=== PATIENT | female | born 1980 | race Caucasian/White ===

== ENCOUNTER 2019-02-08 00:24 | Emergency (ER) | payer OTHER ==
[~2019-02-08] VITALS: Ht 162.6 cm; Wt 97.5 kg
[~2019-02-08 00:24] MED LIST: ADULT LOW DOSE81 MG; ASPIR 8181 MG PO; CHLORTHALIDONE25 MG PO; CIPROFLOXACIN500 M1 PO; CLONIDINE0.1 PO; EXCEDRIN MIGRA1 EAC1 PO; FAMOTIDINE; HYDROCHLOROTH12.5 M1 PO; HYDROCHLOROTHIA25 M2 GT; IBUPROFEN 600600 M1 PO; LABETALOL HCL300 MG PO; LISINOPRIL10 MG PO; LISINOPRIL40 MG PO; MACROBID 100 M100 M1 PO; METHYLDOPA500 MG PO; NIFEDICAL XL60 MG; NORCO 5-325 TA1 EACH PO; NORFLEX100 MG PO; NORVASC 5 MG TAB5 MG PO; PRENATAL; PRINIVIL20 MG PO; ZPAK PO
[2019-02-08] MEDS ORDERED: ZESTRIL40 MG PO (00:35)
[2019-02-08] MEDS ORDERED: METFORMIN HCL500 MG PO (00:36)
[2019-02-08] MEDS ORDERED: CHLORTHALIDONE25 MG PO (00:36)
[2019-02-08] MEDS ORDERED: SPIRONOLACTONE25 M1 PO (00:36)
[2019-02-08] MEDS ORDERED: CARVEDILOL12.5 MG PO (00:36)
[2019-02-08] MEDS ORDERED: PROTONIX40 M1 PO (00:37)
[2019-02-08] MEDS ORDERED: LIPITOR 20 MG T20 M1 PO (00:37)
[2019-02-08 02:53] LABS: ANION GAP 8 mmol/L (7-16); BUN 14 mg/dL (7-18); CALCIUM 9.2 mg/dL (8.5-10.1); CHLORIDE 102 mmol/L (98-107); CO2 24 mmol/L (21-32); CREATININE 0.7 mg/dL (0.6-1.0); GLUCOSE 111 mg/dL (74-106); POTASSIUM 3.9 mmol/L (3.5-5.1); SODIUM 134 mmol/L (136-145)
[2019-02-08 03:02] LABS: TROPONIN-I <0.06 ng/mL (<0.06)
[2019-02-08] MEDS ORDERED: MIRALAX17 GM PO (04:14)
[2019-02-08 04:30] VITALS: BP 142/89
--- NOTE | 2019-02-08 07:51 | EKG ---
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
== END 2019-02-08 04:30 | disposition home or self-care (01) ==
LOC: ER 00:24
PROVIDERS: Emergency Medicine
DX: K64.5 Perianal venous thrombosis (principal); I10 Essential (primary) hypertension; Z90.49 Acquired absence of other specified parts of digestive tract; Z86.73 Personal history of transient ischemic attack (TIA), and cerebral infarction without residual deficits; Z98.890 Other specified postprocedural states; Z88.0 Allergy status to penicillin; Z88.2 Allergy status to sulfonamides; Z88.8 Allergy status to other drugs, medicaments and biological substances

== ENCOUNTER 2019-02-10 09:35 | Day surgery (SDC) | payer OTHER ==
[~2019-02-10] VITALS: Ht 152.4 cm; Wt 96.2 kg
[~2019-02-10 09:35] MED LIST changes: +CARVEDILOL12.5 MG PO; +LIPITOR 20 MG T20 M1 PO; +METFORMIN HCL500 MG PO; +MIRALAX17 GM PO; +PROTONIX40 M1 PO; +SPIRONOLACTONE25 M1 PO; +ZESTRIL40 MG PO
[2019-02-10 10:35] VITALS: BP 150/83
[2019-02-10] MEDS ORDERED: ASPIR 8181 MG PO (11:29)
[2019-02-10] MEDS ORDERED: HYDROCODON-ACE1 EAC7 PO (11:32)
[2019-02-10] MEDS ORDERED: MIRALAX17 GM PO (11:32)
[2019-02-10] MEDS ORDERED: METAMUCIL FIBE3.4 GM PO (11:32)
[2019-02-10] MEDS ORDERED: COLACE 100 MG100 MG PO (11:32)
[2019-02-10 15:55] VITALS: BP 151/92
--- NOTE | 2019-02-10 15:55 | 2DMMODE ---
[facility] [address] [place] [address] 2 D/M-MODE ECHOCARDIOGRAM Name: ASHLEYPRECIOUSLAJANEE YONAS Room #: 150-6 [facility] M.R.#: [id number] Admission: 02/10/19 Attend Phys: José Carter, Discharge: Date of : 76 Date of Service: 02/10/19 1554 Report #: [id number] THIS REPORT FOR: //name// APPROVED REPORT Study performed: 02/10/2019 14:59:45 EXAM: Comprehensive 2D, Doppler, and color-flow Echocardiogram Patient Location: PACU Status: routine BSA: 1.91 HR: 72 bpm BP: 150/83 mmHg Rhythm: NSR Other Information Study Quality: Good Indications Chest Pain HTN 2D Dimensions RVDd: 30.45 mm IVSd: 11.06 (7-11mm) LVOT Diam: 23.35 (18-24mm) LVDd: 44.78 mm PWd: 10.10 (7-11mm) Ascending Ao: 39.12 (22-36mm) LVDs: 30.34 (25-40mm) Aortic Root: 42.06 mm Volumes Left Atrial Volume (Systole) Single Plane 4CH: 42.78 mL Single Plane 2CH: 59.65 mL LA ESV Index: 29.00 mL/m2 Aortic Valve AoV Peak Alok.: 1.27 m/s AO Peak Gr.: 6.42 mmHg LVOT Max P.50 mmHg LVOT Max V: 0.93 m/s CHARI Vmax: 3.16 cm2 Mitral Valve E/A Ratio: 0.9 MV Decel. Time: 225.56 ms [facility] [address] [place] [address] 2 D/M-MODE ECHOCARDIOGRAM Name: ASHLEYPRECIOUSJANEE YONAS Room #: 150-6 [facility].#: [id number] Admission: 02/10/19 Attend Phys: José Carter, Discharge: Date of : 76 Date of Service: 02/10/19 1554 Report #: [id number] MV E Max Alok.: 0.83 m/s MV A Alok.: 0.97 m/s MV PHT: 65.41 ms IVRT: 87.66 ms Pulmonary Valve PV Peak Alok.: 0.90 m/s PV Peak Gr.: 3.21 mmHg Pulmonary Vein P Vein S: 0.57 m/s P Vein A: 0.33 m/s P Vein D: 0.28 m/s P Vein A Dur.: 124.6 msec P Vein S/D Ratio: 2.04 Tricuspid Valve TR Peak Alok.: 2.05 m/s RAP Estimate: 5.00 mmHg TR Peak Gr.: 16.84 mmHg PA Pressure: 22.00 mmHg Left Ventricle The left ventricle is normal size. There is normal LV segmental wall motion. There is normal left ventricular wall thickness. Left ventricular systolic function is normal. LVEF is 60-65%. Mild diastolic dysfunction Right Ventricle The right ventricle is normal size. The right ventricular systolic function is normal. Atria The left atrium size is normal. The right atrium size is normal. Aortic Valve The aortic valve is normal in structure. No aortic regurgitation is present. There is no aortic valvular stenosis. Mitral Valve The mitral valve is normal in structure. Trace mitral regurgitation. Tricuspid Valve The tricuspid valve is normal in structure. Mild tricuspid regurgitation. Estimated PAP is 20-25mmHg. Pulmonic Valve The pulmonary valve is normal in structure. Trace pulmonic [facility] [address] [place] [address] 2 D/M-MODE ECHOCARDIOGRAM Name: JANEE NAGY Room #: 150-6 [facility] Jennifer#: [id number] Admission: 02/10/19 Attend Phys: José Carter, Discharge: Date of : 76 Date of Service: 02/10/19 1554 Report #: [id number] regurgitation. Great Vessels Aortic root is dilated at 4.2cm. Ascending aorta is miildly dilated (3.9cm). IVC is normal in size and collapses >50% with inspiration. Pericardium There is no pericardial effusion. <Conclusion> Left ventricular systolic function is normal. There is normal LV segmental wall motion. LVEF is 60-65%. Mild diastolic dysfunction The aortic valve is normal in structure. No aortic regurgitation or stenosis. The mitral valve is normal in structure. Trace mitral regurgitation. Mild tricuspid regurgitation. Estimated pulmonary artery pressure of 20-25mmHg. Ascending aorta is miildly dilated (3.9cm). There is no pericardial effusion. <ELECTRONICALLY SIGNED> By: Mihir Pichardo MD, [facility] 02/10/19 1554 1554 1554 Mihir Pichardo MD, FACC /INF
[2019-02-10 16:40] VITALS: BP 150/83
[2019-02-10 17:23] VITALS: BP 150/83
--- NOTE | 2019-02-10 18:15 | EKG ---
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
--- NOTE | 2019-02-11 10:31 | EKG ---
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1980 Requested By: José Carter Order Number: [id number] MD: Mihir Pichardo Measurements Intervals [place] Rate: 66 P: 28 IN: 218 QRS: 18 QRSD: 100 T: 37 QT: 425 QTc: 446 Interpretive Statements Sinus rhythm Prolonged IN interval Compared to ECG 02/08/2019 02:27:26 No significant changes Electronically Signed On 02-11-2019 10:31:36 CDT by Mihir Pichardo [email or web address] <ELECTRONICALLY SIGNED> By: Mihir Pichardo MD, [facility] 02/11/19 1031 1018 1018 Mihir Pichardo MD, [facility] /EPI
--- NOTE | 2019-02-11 10:36 | EKG ---
[place] [address] [address] [facility] [place] [address] ELECTROCARDIOGRAM REPORT Name: ASHLEYPRECIOUSJANEE Room #: [facility].#: [id number] Admission: 02/10/19 Attend Phys: José Carter MD Discharge: 02/10/19 Date of : 76 Report #: [id number] THIS REPORT FOR: //name// 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1980 Requested By: Fawn Varner Order Number: [id number] MD: Mihir Pichardo Measurements Intervals [place] Rate: 79 P: 43 VA: 223 QRS: 13 QRSD: 93 T: 35 QT: 403 QTc: 463 Interpretive Statements Sinus rhythm Prolonged VA interval Abnormal R-wave progression, early transition Compared to ECG 02/08/2019 02:27:26 No significant change was found Electronically Signed On 02-11-2019 10:36:32 CDT by Mihir Pichardo [email or web address] <ELECTRONICALLY SIGNED> By: Mihir Pichardo MD, [facility] 02/11/19 1036 1319 1319 Mihir Pichardo MD, [facility] /EPI
--- NOTE | 2019-02-13 15:26 | O ---
[address] [address] OPERATIVE REPORT Name: LA NAGYFER YONAS Room #: DEP [facility] Jennifer#: [id number] Admission: 02/10/19 Attend Phys: José Carter MD Discharge: 02/10/19 Date of : 76 Report #: [id number] THIS REPORT FOR: //name// CC: José Vides DATE OF SERVICE: 02/10/2019 PROCEDURE PERFORMED: 1. Exam under anesthesia. 2. Incision and drainage of several thrombosed hemorrhoids. PREPROCEDURAL DIAGNOSES: 1. Thrombosed hemorrhoids. 2. Coronary artery disease, status post myocardial infarction x 3, last 3 months ago. 3. History of stroke. 4. Morbid obesity. 5. Diabetes mellitus. 6. Hypertension. 7. Hyperlipidemia. POSTPROCEDURAL DIAGNOSES: 1. Thrombosed hemorrhoids. 2. Coronary artery disease, status post myocardial infarction x 3, last 3 months ago. 3. History of stroke. 4. Morbid obesity. 5. Diabetes mellitus. 6. Hypertension. 7. Hyperlipidemia. SURGEON: Dr. Carter. ESTIMATED BLOOD LOSS: None. ANESTHETIC: 1. General. 2. Local. URINE OUTPUT: Not measured. No Rg. COMPLICATIONS: None. FINDINGS: The patient had very large right posterior and right lateral thrombosed hemorrhoid as well as left lateral thrombosed hemorrhoid. [address] [address] OPERATIVE REPORT Name: JANEE NAGY Room #: DEP [facility].#: [id number] Admission: 02/10/19 Attend Phys: José Carter MD Discharge: 02/10/19 Date of : 76 Report #: [id number] INDICATIONS FOR PROCEDURE: The patient is a very pleasant 38-year-old female who presented last Wednesday in clinic with rectal pain. The patient was found to have thrombosed hemorrhoids. She had been referred to my clinic from the ER the same morning. The patient underwent bedside attempted incision and drainage of hemorrhoids and one successful in removing a small clot, but the patient continued to have severe pain. She was seen again in clinic on and severe pain. We did discuss operative incision and drainage of her thrombosed hemorrhoids. The risks, benefits and alternatives of the procedure were discussed with the patient. The risks discussed included but were not limited to the risk of bleeding, requiring rehospitalization or blood transfusion, infection, myocardial infarction given that she is at high risk for this with her recent myocardial infarction 3 months ago, pulmonary type complications, neurologic type complications, risk of incontinence, risk of postoperative pain. Alternatives discussed included no procedure and allowing the thrombosed hemorrhoids to reabsorb on their own. The patient had the opportunity to ask questions. All questions were answered to the best of my ability. At the end of the discussion, they did wish to proceed with surgery. DESCRIPTION OF PROCEDURE: After informed consent was obtained as above, the patient was taken to the operating room and placed in supine position. General anesthesia was induced. Preprocedure antibiotics were administered and she was then transitioned into the dorsal lithotomy position. The perineum was prepped and draped in the usual sterile fashion. A timeout was performed. The patient had the largest thrombosed hemorrhoid just off the midline to the right, this was incised in an elliptical fashion. The blood clot was removed. There were several pockets of blood clot that was removed. The patient had a second thrombosed hemorrhoid that was just to the right lateral of the first one. The same elliptical incision was removed and dark clotted blood was suctioned out. Hemostasis was present. A 3-0 Vicryl interrupted suture was placed in the first incision in order to obtain hemostasis on the proximal aspect of the elliptical incision. Hemostasis was present. The patient did have very large hemorrhoids and there were some smaller thrombi and other areas of the anal canal; however, seem to extent and they continue to make a small elliptical incision over each one. Therefore, the decision was made to take care of the very large and painful appearing one and not go after every single small appearing clot. The patient was hemostatic. Thrombin Gelfoam was placed in the anal canal. The patient tolerated the procedure well and there were no adverse events throughout the course of procedure. <ELECTRONICALLY SIGNED> By: José Carter MD 02/13/19 1526 1158 1319 José Carter MD /nt
== END 2019-02-10 18:52 | disposition home or self-care (01) ==
LOC: OR 09:35 → TBA 09:36 → OR 15:57 → 2N 16:24 → OR 16:30
DX: K64.5 Perianal venous thrombosis (principal); I08.1 Rheumatic disorders of both mitral and tricuspid valves; I10 Essential (primary) hypertension; I25.10 Atherosclerotic heart disease of native coronary artery without angina pectoris; I25.2 Old myocardial infarction; E11.9 Type 2 diabetes mellitus without complications; E78.5 Hyperlipidemia, unspecified; E66.01 Morbid (severe) obesity due to excess calories; Z86.73 Personal history of transient ischemic attack (TIA), and cerebral infarction without residual deficits; Z98.890 Other specified postprocedural states; Z79.899 Other long term (current) drug therapy; Z90.49 Acquired absence of other specified parts of digestive tract; Z88.2 Allergy status to sulfonamides; Z88.0 Allergy status to penicillin; Z79.82 Long term (current) use of aspirin; Z68.41 Body mass index [BMI] 40.0-44.9, adult
CPT/HCPCS: 10797; 50010; 50101; 50386; 56524